=== PATIENT | female | born 1975 | race Caucasian/White ===

== ENCOUNTER 2017-10-07 19:30 | Emergency (ER) | payer OTHER ==
[~2017-10-07] VITALS: Ht 154.9 cm; Wt 56.7 kg
--- NOTE | 2017-10-07 19:30 | NUR ---
MSE DONE BY DR BROWN. PATIENT A & O X4. NO DISTRESS NOTED.
--- NOTE | 2017-10-07 19:45 | NUR ---
Patient discharged to home in stable conditon. Written and verbal after care instructions given. Patient verbalizes understanding of instructions.
== END 2017-10-07 19:45 | disposition home or self-care (01) ==
LOC: ER 19:32
DX: F41.9 Anxiety disorder, unspecified (principal); Z76.0 Encounter for issue of repeat prescription; J45.909 Unspecified asthma, uncomplicated
CPT/HCPCS: 99284; A4663

== ENCOUNTER 2017-10-25 22:36 | Emergency (ER) | payer OTHER ==
[~2017-10-25] VITALS: Ht 160 cm; Wt 50.8 kg
[2017-10-25] MEDS ORDERED: CLONAZEPAM (22:51)
--- NOTE | 2017-10-25 22:55 | NUR ---
DR. WATSON AT BEDSIDE FOR MSE.
[2017-10-25 23:21] LABS: BASOPHILS % (AUTO) 0.6 % (0.0-2.0); EOSINOPHILS # (AUTO) 0.2 K/uL (0.0-0.7); EOSINOPHILS % (AUTO) 2.4 % (0.0-7.0); HEMATOCRIT 36.1 % (31.2-41.9); HEMOGLOBIN 12.5 g/dL (10.9-14.3); LYMPHOCYTES % (AUTO) 27.5 % (20.5-51.5); MEAN CORPUSCULAR HEMOGLOBIN 31.1 uug (24.7-32.8); MEAN CORPUSCULAR HGB CONC 35 g/dL (32.3-35.6); MEAN CORPUSCULAR VOLUME 89.7 fL (75.5-95.3); MONOCYTES # (AUTO) 0.5 K/uL (2.0-10.0); MONOCYTES % (AUTO) 6.9 % (0.0-11.0); NEUTROPHILS # (AUTO) 4.6 K/uL (1.8-8.9); NEUTROPHILS % (AUTO) 62.6 % (38.5-71.5); PLATELET COUNT (AUTO) 177 K/uL (179-408); RED BLOOD CELL COUNT(AUTO) 4.02 MIL/uL (3.63-4.92); WHITE BLOOD COUNT (AUTO) 7.4 K/uL (3.8-11.8)
[2017-10-25 23:24] LABS: *BILIRUBIN,URIN NEGATIVE (NEGATIVE); *BLOOD, URINE NEGATIVE (NEGATIVE); *CLARITY,URINE CLEAR (CLEAR); *COLOR,URINE STRAW (YELLOW); *KETONES,URINE NEGATIVE (NEGATIVE); *PROTEIN,URINE NEGATIVE (NEGATIVE); *UROBILINOGEN,URINE 0.2 E.U./dl (NORMAL); LEUKOCYTE ESTERASE ,URINE 1+ (NEGATIVE); NITRITE, URINE NEGATIVE (NEGATIVE); PH,URINE 6.5 (5.0-8.0); UGLUCOSE NEGATIVE (NEGATIVE)
[2017-10-25 23:35] LABS: BACTERIA,URINE FEW /HPF (NONE SEEN); RBC,URINE NONE SEEN /HPF (0-3); SQUAMOUS EPITHELIAL CELL,UR FEW /HPF (NONE SEEN)
[2017-10-25 23:36] LABS: *URINE HCG, QUAL NEGATIVE (NEGATIVE); BILIRUBIN,DIRECT 0.1 mg/dL (0.0-0.2); BILIRUBIN,TOTAL 0.3 mg/dL (0.2-1.0); CREATININE 0.9 mg/dL (0.6-1.3); POTASSIUM 3.9 mmol/L (3.5-5.1); TOTAL PROTEIN, SERUM 7.3 g/dL (6.4-8.2)
--- NOTE | 2017-10-26 00:25 | NUR ---
Patient discharged to home in stable conditon. Written and verbal after care instructions given. Patient verbalizes understanding of instructions. PATIENT LEFT WITH STABLE GAIT.
[2017-10-26 00:26] VITALS: BP 114/69
[2017-10-26] MEDS ORDERED: CEPHALEXIN MONOHYDRATE 500 MG CAPSULE PO ONE (00:30)
[2017-10-26] MEDS ORDERED: CEPHALEXIN MONOHYDRATE 500 MG CAPSULE ONE (00:39)
== END 2017-10-26 00:26 | disposition home or self-care (01) ==
LOC: ER 22:37
DX: N39.0 Urinary tract infection, site not specified (principal); K59.00 Constipation, unspecified; J45.909 Unspecified asthma, uncomplicated; Z88.2 Allergy status to sulfonamides
CPT/HCPCS: 36415; 74021; 80048; 80076; 81001; 83690; 84703; 85025; 99285; A4663

== ENCOUNTER 2017-10-31 13:24 | Emergency (ER) | payer OTHER ==
[~2017-10-31] VITALS: Ht 165.1 cm; Wt 50.8 kg
[~2017-10-31 13:24] MED LIST: CLONAZEPAM
[2017-10-31 13:55] LABS: *BILIRUBIN,URIN NEGATIVE (NEGATIVE); *BLOOD, URINE 2+ (NEGATIVE); *CLARITY,URINE CLEAR (CLEAR); *COLOR,URINE YELLOW (YELLOW); *KETONES,URINE NEGATIVE (NEGATIVE); *PROTEIN,URINE NEGATIVE (NEGATIVE); *URINE HCG, QUAL NEGATIVE (NEGATIVE); *UROBILINOGEN,URINE 0.2 E.U./dl (NORMAL); LEUKOCYTE ESTERASE ,URINE 1+ (NEGATIVE); NITRITE, URINE NEGATIVE (NEGATIVE); UGLUCOSE NEGATIVE (NEGATIVE)
[2017-10-31 14:07] LABS: BACTERIA,URINE FEW /HPF (NONE SEEN); SQUAMOUS EPITHELIAL CELL,UR MODERATE /HPF (NONE SEEN)
--- NOTE | 2017-10-31 16:15 | NUR ---
MSE COMPLETED. OPT D/C'D HOME,ACI/RX X1 GIVEN. PT AMBULATED W/O DIFF/TOOK ALL BELONGINGS.
[2017-10-31 16:17] VITALS: BP 110/70
== END 2017-10-31 16:14 | disposition home or self-care (01) ==
LOC: ER 13:24
DX: N39.0 Urinary tract infection, site not specified (principal); J45.909 Unspecified asthma, uncomplicated; Z88.2 Allergy status to sulfonamides
CPT/HCPCS: 84703; 87086; A4663

== ENCOUNTER 2017-11-14 11:16 | Emergency (ER) | payer OTHER ==
[~2017-11-14] VITALS: Ht 157.5 cm; Wt 50.8 kg
[2017-11-14] MEDS ORDERED: predniSONE 10 MG TABLET PO ONE (12:15)
[2017-11-14] MEDS ORDERED: IPRATROPIUM BROMIDE 0.5 MG/2.5 ML NEBU NEB ONE (12:15)
[2017-11-14] MEDS ORDERED: ALBUTEROL SULFATE 2.5 MG/3 ML NEBU NEB ONE (12:15)
[2017-11-14] MEDS ORDERED: predniSONE 20 MG TABLET ONE (12:35)
--- NOTE | 2017-11-14 12:38 | NUR ---
PRTEDNISONE ADMIN EARLIER, PRESENTLY PT REC'ING RESP TX
[2017-11-14] MEDS ORDERED: ALBUTEROL SULFATE 2.5 MG/ 0.5 ML NEBU ONE (12:44)
[2017-11-14] MEDS ORDERED: IPRATROPIUM BROMIDE 0.5 MG/2.5 ML NEBU ONE (12:44)
[2017-11-14 14:02] VITALS: BP 110/68
== END 2017-11-14 14:02 | disposition home or self-care (01) ==
LOC: ER 11:16
DX: J45.909 Unspecified asthma, uncomplicated (principal); Z88.2 Allergy status to sulfonamides
CPT/HCPCS: 94644; 99285; A4663; J3590; J7512

== ENCOUNTER 2017-12-03 11:30 | Emergency (ER) | payer OTHER ==
[~2017-12-03] VITALS: Ht 157.5 cm; Wt 50.8 kg
[2017-12-03 12:31] LABS: BASOPHILS % (AUTO) 0.6 % (0.0-2.0); EOSINOPHILS # (AUTO) 0.2 K/uL (0.0-0.7); EOSINOPHILS % (AUTO) 2.3 % (0.0-7.0); HEMATOCRIT 38.1 % (31.2-41.9); HEMOGLOBIN 13.1 g/dL (10.9-14.3); LYMPHOCYTES # (AUTO) 1.1 K/uL (20.0-40.0); LYMPHOCYTES % (AUTO) 15.7 % (20.5-51.5); MEAN CORPUSCULAR HEMOGLOBIN 30.7 uug (24.7-32.8); MEAN CORPUSCULAR HGB CONC 34 g/dL (32.3-35.6); MEAN CORPUSCULAR VOLUME 89.5 fL (75.5-95.3); MONOCYTES # (AUTO) 0.8 K/uL (2.0-10.0); MONOCYTES % (AUTO) 10.5 % (0.0-11.0); NEUTROPHILS # (AUTO) 5.2 K/uL (1.8-8.9); NEUTROPHILS % (AUTO) 70.9 % (38.5-71.5); PLATELET COUNT (AUTO) 178 K/uL (179-408); RED BLOOD CELL COUNT(AUTO) 4.26 MIL/uL (3.63-4.92); WHITE BLOOD COUNT (AUTO) 7.3 K/uL (3.8-11.8)
[2017-12-03 12:38] LABS: *BLOOD, URINE 2+ (NEGATIVE); *COLOR,URINE YELLOW (YELLOW); *KETONES,URINE NEGATIVE (NEGATIVE); *PROTEIN,URINE NEGATIVE (NEGATIVE); *UROBILINOGEN,URINE 0.2 E.U./dl (NORMAL); LEUKOCYTE ESTERASE ,URINE 1+ (NEGATIVE); NITRITE, URINE NEGATIVE (NEGATIVE); UGLUCOSE NEGATIVE (NEGATIVE)
[2017-12-03 12:40] LABS: *BILIRUBIN,URIN NEGATIVE (NEGATIVE)
[2017-12-03 12:47] LABS: BILIRUBIN,DIRECT 0.2 mg/dL (0.0-0.2); BILIRUBIN,TOTAL 0.9 mg/dL (0.2-1.0); POTASSIUM 3.7 mmol/L (3.5-5.1); TOTAL PROTEIN, SERUM 6.8 g/dL (6.4-8.2)
[2017-12-03 12:47] LABS: BACTERIA,URINE FEW /HPF (NONE SEEN)
[2017-12-03 12:48] LABS: SQUAMOUS EPITHELIAL CELL,UR MODERATE /HPF (NONE SEEN)
[2017-12-03 12:52] LABS: *CLARITY,URINE SLIGHTLY CLOUDY (CLEAR)
--- NOTE | 2017-12-03 13:15 | NUR ---
MSE COMPLETED, PT D/C'D HOME, ACI/RX X1 AND CD COPY OF RIGOBERTO GIVEN. PT AMBULATED W/O DIFF/TOPOK ALL BELONGINGS.
[2017-12-03 13:16] VITALS: BP 107/64
== END 2017-12-03 13:16 | disposition home or self-care (01) ==
LOC: ER 11:30
DX: K80.70 Calculus of gallbladder and bile duct without cholecystitis without obstruction (principal); J45.909 Unspecified asthma, uncomplicated; Z88.2 Allergy status to sulfonamides
CPT/HCPCS: 36415; 76700; 83690; 84703; 85025; A4663

== ENCOUNTER 2018-04-01 11:53 | Emergency (ER) | payer OTHER ==
[~2018-04-01] VITALS: Ht 152.4 cm; Wt 51.7 kg
--- NOTE | 2018-04-01 12:06 | NUR ---
Patient discharged to home in stable conditon. Written and verbal after care instructions given. Patient verbalizes understanding of instructions.PT WALKS IN STEADY GAIT, NO RESP DISTRESS.
== END 2018-04-01 12:08 | disposition home or self-care (01) ==
LOC: ER 11:53
DX: J45.909 Unspecified asthma, uncomplicated (principal); Z88.2 Allergy status to sulfonamides; Z88.8 Allergy status to other drugs, medicaments and biological substances; Z79.899 Other long term (current) drug therapy
CPT/HCPCS: 99283; A4663

== ENCOUNTER 2018-04-18 20:05 | Emergency (ER) | payer OTHER ==
[~2018-04-18] VITALS: Ht 154.9 cm; Wt 50.8 kg
[2018-04-18] MEDS ORDERED: VENTOLIN INHALER (20:29)
--- NOTE | 2018-04-18 20:39 | NUR ---
PT IN NO DISTRESS,AAOX4, AMBULATORY C/O UNABLE TO LAY FLAT LAST NIGHT BUT SHE FEELS MUCH BETTER, HX OF ASHTMA, ALL LUNG ROGERS CLEAR, DENIES CP/SOB, PLACED ON THE MONITOR, HOB UP, SR UPX2 FOR SAFETY, BED IN LOW POSITION, LOCKED
[2018-04-18] MEDS ORDERED: predniSONE 10 MG TABLET PO ONE (20:45)
[2018-04-18] MEDS ORDERED: ALBUTEROL SULFATE 2.5 MG/3 ML NEBU NEB ONE (20:45)
[2018-04-18] MEDS ORDERED: IPRATROPIUM BROMIDE 0.5 MG/2.5 ML NEBU NEB ONE (20:45)
[2018-04-18] MEDS ORDERED: ALBUTEROL SULFATE 2.5 MG/3 ML NEBU ONE (21:02)
[2018-04-18] MEDS ORDERED: IPRATROPIUM BROMIDE 0.5 MG/2.5 ML NEBU ONE (21:02)
[2018-04-18] MEDS ORDERED: predniSONE 10 MG TABLET ONE (21:05)
[2018-04-18] MEDS ORDERED: predniSONE 50 MG TABLET ONE (21:06)
--- NOTE | 2018-04-18 23:06 | NUR ---
PT DENIES CP/SOB, PT ADVISED TO F/U WITH PMD OR RETURN TO ER FOR WORSENING OF SYMPTOMS,VERBALIZES UNDERSTANDING,RX GIVEN TO PT
== END 2018-04-18 23:24 | disposition home or self-care (01) ==
LOC: ER 20:05
DX: J45.909 Unspecified asthma, uncomplicated (principal); Z88.0 Allergy status to penicillin; Z88.2 Allergy status to sulfonamides; Z88.8 Allergy status to other drugs, medicaments and biological substances; Z79.899 Other long term (current) drug therapy
CPT/HCPCS: A4663; J3590; J7512

== ENCOUNTER 2018-04-28 09:02 | Emergency (ER) | payer OTHER ==
[~2018-04-28] VITALS: Ht 157.5 cm; Wt 50.8 kg
[~2018-04-28 09:02] MED LIST changes: +VENTOLIN INHALER
--- NOTE | 2018-04-28 09:17 | NUR ---
Dr Murdock at the bedside for MSE.
[2018-04-28] MEDS ORDERED: IPRATROPIUM BROMIDE 0.5 MG/2.5 ML NEBU NEB ONE (09:21)
[2018-04-28] MEDS ORDERED: predniSONE 20 MG TABLET PO ONE (09:21)
[2018-04-28] MEDS ORDERED: predniSONE 20 MG TABLET ONE (09:28)
[2018-04-28] MEDS ORDERED: IPRATROPIUM BROMIDE 0.5 MG/2.5 ML NEBU ONE (09:29)
[2018-04-28] MEDS ORDERED: ALBUTEROL SULFATE 2.5 MG/ 0.5 ML NEBU ONE (09:30)
[2018-04-28] MEDS ORDERED: ALBUTEROL SULFATE 2.5 MG/3 ML NEBU NEB ONE (09:30)
--- NOTE | 2018-04-28 10:30 | NUR ---
Pt states feeling better and wishes to leave.
--- NOTE | 2018-04-28 10:35 | NUR ---
Patient discharged to home in stable conditon. Written and verbal after care instructions given. Patient verbalizes understanding of instructions.
[2018-04-28 10:36] VITALS: BP 111/70
== END 2018-04-28 10:36 | disposition home or self-care (01) ==
LOC: ER 09:02
DX: J45.901 Unspecified asthma with (acute) exacerbation (principal); J45.909 Unspecified asthma, uncomplicated; Z88.0 Allergy status to penicillin; Z88.2 Allergy status to sulfonamides; Z88.8 Allergy status to other drugs, medicaments and biological substances; Z79.899 Other long term (current) drug therapy
CPT/HCPCS: 94640; 99283; A4663 ×2; J3590; J7512

== ENCOUNTER 2018-12-20 21:22 | Emergency (ER) | payer OTHER ==
[~2018-12-20] VITALS: Ht 160 cm; Wt 52.2 kg
--- NOTE | 2018-12-20 21:48 | NUR ---
Pt. ambulated into ED w/ daughter for c/o anxiety - states her clinic has closed and she has a new appointment w/ new psychiatrist but not until February, would like a prescription refill,
--- NOTE | 2018-12-20 22:02 | NUR ---
Patient discharged to home in stable conditon. Written and verbal after care instructions given. Patient verbalizes understanding of instructions. Pt. d/c w/ prescription per MD order, all belongings w/ pt., ID band removed, ambulated off unit w/ steady gait, instructed not to drive, NAD,
== END 2018-12-20 22:05 | disposition home or self-care (01) ==
LOC: ER 21:24
DX: F41.9 Anxiety disorder, unspecified (principal); J45.909 Unspecified asthma, uncomplicated; F17.290 Nicotine dependence, other tobacco product, uncomplicated; Z76.0 Encounter for issue of repeat prescription; Z88.0 Allergy status to penicillin; Z88.2 Allergy status to sulfonamides; Z88.8 Allergy status to other drugs, medicaments and biological substances; Z79.899 Other long term (current) drug therapy
CPT/HCPCS: A4663

== ENCOUNTER 2019-01-02 09:11 | Emergency (ER) | payer OTHER ==
[~2019-01-02] VITALS: Ht 162.6 cm; Wt 52.2 kg
[2019-01-02] MEDS ORDERED: CLON2TAB11 PO (09:18)
--- NOTE | 2019-01-02 09:38 | NUR ---
JAVIER KIRKPATRICK AT BEDSIDE FOR MSE.
[2019-01-02 09:52] VITALS: BP 110/66
--- NOTE | 2019-01-02 09:52 | NUR ---
Patient discharged to home in stable conditon. Written and verbal after care instructions given. Patient verbalizes understanding of instructions. PT D/C W/ PRESCRIPTIONS. ALL BELONGINGS W/ PT. PT SELF-AMBULATED W/O DIFFICULTY.
== END 2019-01-02 09:53 | disposition home or self-care (01) ==
LOC: ER 09:11
DX: F41.0 Panic disorder [episodic paroxysmal anxiety] (principal); Z76.0 Encounter for issue of repeat prescription; J45.909 Unspecified asthma, uncomplicated; F17.200 Nicotine dependence, unspecified, uncomplicated; Z88.0 Allergy status to penicillin; Z88.2 Allergy status to sulfonamides; Z88.8 Allergy status to other drugs, medicaments and biological substances; Z79.899 Other long term (current) drug therapy
CPT/HCPCS: A4663

== ENCOUNTER 2019-02-11 08:35 | Emergency (ER) | payer OTHER ==
[~2019-02-11] VITALS: Ht 142.2 cm; Wt 59.0 kg
[~2019-02-11 08:35] MED LIST changes: +CLON2TAB11 PO
--- NOTE | 2019-02-11 08:53 | NUR ---
PT WAS EVALUATED BY DR BRODY. PT WAS D/C'd TO HOME. D/C INSTRUCTIONS GIVEN TO THE PT.
[2019-02-11 08:55] VITALS: BP 125/68
== END 2019-02-11 08:57 | disposition home or self-care (01) ==
LOC: ER 08:35
DX: F41.9 Anxiety disorder, unspecified (principal); J45.909 Unspecified asthma, uncomplicated; F17.200 Nicotine dependence, unspecified, uncomplicated; Z88.0 Allergy status to penicillin; Z76.0 Encounter for issue of repeat prescription; Z88.2 Allergy status to sulfonamides; Z88.8 Allergy status to other drugs, medicaments and biological substances; Z79.899 Other long term (current) drug therapy
CPT/HCPCS: A4663

== ENCOUNTER 2019-10-19 09:54 | Emergency (ER) | payer OTHER ==
[~2019-10-19] VITALS: Ht 162.6 cm; Wt 52.2 kg
[2019-10-19] MEDS ORDERED: predniSONE 20 MG TABLET PO ONE (10:15)
[2019-10-19] MEDS ORDERED: predniSONE 50 MG TABLET ONE (10:24)
[2019-10-19] MEDS ORDERED: predniSONE 10 MG TABLET ONE (10:24)
--- NOTE | 2019-10-19 10:39 | NUR ---
Patient discharged to home in stable conditon. Written and verbal after care instructions given. Patient verbalizes understanding of instructions.pt walks in steady gait
== END 2019-10-19 10:49 | disposition home or self-care (01) ==
LOC: ER 09:57
DX: J45.901 Unspecified asthma with (acute) exacerbation (principal); M54.6 Pain in thoracic spine; F17.200 Nicotine dependence, unspecified, uncomplicated; Z88.0 Allergy status to penicillin; Z88.2 Allergy status to sulfonamides; Z88.8 Allergy status to other drugs, medicaments and biological substances; Z79.899 Other long term (current) drug therapy
CPT/HCPCS: 99283; J7512 ×2; A4663

== ENCOUNTER 2019-12-13 11:59 | Emergency (ER) | payer OTHER ==
[~2019-12-13] VITALS: Ht 152.4 cm; Wt 54.4 kg
[2019-12-13] MEDS ORDERED: predniSONE 50 MG TABLET PO ONE (13:15)
[2019-12-13] MEDS ORDERED: predniSONE 50 MG TABLET ONE (13:15)
[2019-12-13 13:19] VITALS: BP 104/72
--- NOTE | 2019-12-13 13:19 | NUR ---
Patient discharged to home in stable conditon. Written and verbal after care instructions given. Patient verbalizes understanding of instructions.
== END 2019-12-13 13:20 | disposition home or self-care (01) ==
LOC: ER 12:01
DX: J45.901 Unspecified asthma with (acute) exacerbation (principal); F41.9 Anxiety disorder, unspecified; F17.290 Nicotine dependence, other tobacco product, uncomplicated; Z76.0 Encounter for issue of repeat prescription; Z88.0 Allergy status to penicillin; Z88.2 Allergy status to sulfonamides; Z88.8 Allergy status to other drugs, medicaments and biological substances; Z79.899 Other long term (current) drug therapy
CPT/HCPCS: 99283; 99406; J7512; A4663

== ENCOUNTER 2020-07-27 17:50 | Emergency (ER) | payer OTHER ==
[~2020-07-27] VITALS: Ht 157.5 cm; Wt 54.4 kg
[2020-07-27] MEDS ORDERED: predniSONE 20 MG TABLET PO ONE (18:45)
--- NOTE | 2020-07-27 18:47 | NUR ---
Patient discharged to home in stable condition. Written and verbal after care instructions given. Patient verbalizes understanding of instructions. Stressed follow up or return to ER for worsening s/s.
[2020-07-27 18:48] VITALS: BP 126/68
[2020-07-27] MEDS ORDERED: predniSONE 20 MG TABLET ONE ×2 (18:48→18:50)
== END 2020-07-27 18:48 | disposition home or self-care (01) ==
LOC: ER 17:50
DX: J45.901 Unspecified asthma with (acute) exacerbation (principal); F17.210 Nicotine dependence, cigarettes, uncomplicated; Z88.0 Allergy status to penicillin; Z88.2 Allergy status to sulfonamides
CPT/HCPCS: 99283; 99406; J7512 ×2; A4663

== ENCOUNTER 2020-12-06 12:49 | Emergency (ER) | payer OTHER ==
[~2020-12-06] VITALS: Ht 157.5 cm; Wt 56.7 kg
== END 2020-12-06 14:52 | disposition home or self-care (01) ==
LOC: ER 12:49
DX: G62.9 Polyneuropathy, unspecified (principal); F41.9 Anxiety disorder, unspecified; G25.81 Restless legs syndrome; Z91.14 Patient's other noncompliance with medication regimen; Z88.0 Allergy status to penicillin; Z88.2 Allergy status to sulfonamides; Z88.8 Allergy status to other drugs, medicaments and biological substances
CPT/HCPCS: A4663

== ENCOUNTER 2021-01-19 18:14 | Emergency (ER) | payer OTHER ==
[~2021-01-19] VITALS: Ht 160 cm; Wt 54.4 kg
--- NOTE | 2021-01-19 19:01 | NUR ---
chaperoned md with pelvic exam. pt tolerated well.
--- NOTE | 2021-01-19 19:11 | NUR ---
Called radiology department for ultrasound request. U/S tech arrival ETA 30-45 minutes.
[2021-01-19 19:19] LABS: *OCCULT BLOOD STOOL NEGATIVE (NEGATIVE)
[2021-01-19 19:23] LABS: BASOPHILS # (AUTO) 0.1 K/uL (0.0-8.0); BASOPHILS % (AUTO) 0.9 % (0.0-2.0); EOSINOPHILS # (AUTO) 0.2 K/uL (0.0-0.7); EOSINOPHILS % (AUTO) 2.1 % (0.0-7.0); HEMATOCRIT 39.7 % (31.2-41.9); HEMOGLOBIN 13.4 g/dL (10.9-14.3); LYMPHOCYTES # (AUTO) 2.6 K/uL (20.0-40.0); LYMPHOCYTES % (AUTO) 31.5 % (20.5-51.5); MEAN CORPUSCULAR HEMOGLOBIN 30.8 uug (24.7-32.8); MEAN CORPUSCULAR HGB CONC 34 g/dL (32.3-35.6); MONOCYTES # (AUTO) 0.5 K/uL (2.0-10.0); MONOCYTES % (AUTO) 6.1 % (0.0-11.0); NEUTROPHILS % (AUTO) 59.4 % (38.5-71.5); PLATELET COUNT (AUTO) 214 K/uL (179-408); RED BLOOD CELL COUNT(AUTO) 4.36 MIL/uL (3.63-4.92); WHITE BLOOD COUNT (AUTO) 8.4 K/uL (3.8-11.8)
[2021-01-19 19:27] LABS: CREATININE 0.8 mg/dL (0.6-1.3)
[2021-01-19 19:41] LABS: BILIRUBIN,DIRECT 0.1 mg/dL (0.0-0.2); BILIRUBIN,TOTAL 0.4 mg/dL (0.2-1.0); TOTAL PROTEIN, SERUM 6.8 g/dL (6.4-8.2)
--- NOTE | 2021-01-19 20:02 | NUR ---
U/S tech in room with patient to do ultrasound.
--- NOTE | 2021-01-19 20:30 | NUR ---
Patient is resting in bed, using her phone. No acute distress is noted at this time.
[2021-01-19 20:39] LABS: *BILIRUBIN,URIN NEGATIVE (NEGATIVE); *BLOOD, URINE NEGATIVE (NEGATIVE); *CLARITY,URINE CLEAR (CLEAR); *COLOR,URINE YELLOW (YELLOW); *KETONES,URINE NEGATIVE (NEGATIVE); *UROBILINOGEN,URINE 0.2 E.U./dl (NORMAL); LEUKOCYTE ESTERASE ,URINE NEGATIVE (NEGATIVE); NITRITE, URINE NEGATIVE (NEGATIVE); UGLUCOSE NEGATIVE (NEGATIVE)
[2021-01-19 20:40] LABS: *URINE HCG, QUAL NEGATIVE (NEGATIVE)
[2021-01-19] MEDS ORDERED: HYDR28.316 RC (20:46)
[2021-01-19 21:00] VITALS: BP 106/64
--- NOTE | 2021-01-19 21:00 | NUR ---
Patient discharged to home in stable condition. Written and verbal after care instructions given. Patient verbalizes understanding of instructions. Stressed follow up or return to ER for worsening s/s. Patient ambulates with steady gait, Rx electronically sent, stable V/S, left with all personal belongings.
== END 2021-01-19 21:00 | disposition home or self-care (01) ==
LOC: ER 18:22
DX: R10.30 Lower abdominal pain, unspecified (principal); K64.4 Residual hemorrhoidal skin tags; M54.5 Low back pain; Z88.1 Allergy status to other antibiotic agents; Z88.0 Allergy status to penicillin; Z88.2 Allergy status to sulfonamides; G62.9 Polyneuropathy, unspecified
CPT/HCPCS: 36415; 76856; 83690; 84703; 85025; 85730; A4663

== ENCOUNTER 2021-06-05 17:45 | Emergency (ER) | payer OTHER ==
[~2021-06-05] VITALS: Ht 160 cm; Wt 54.4 kg
[~2021-06-05 17:45] MED LIST changes: +HYDR28.316 RC
[2021-06-05] MEDS ORDERED: BENZONATATE 100 MG CAPSULE PO ONE (19:00)
[2021-06-05] MEDS ORDERED: BENZONATATE 100 MG CAPSULE ONE ×2 (19:38→19:45)
[2021-06-05] MEDS ORDERED: AZIT250T PO ×2 (20:22→21:08)
[2021-06-05] MEDS ORDERED: BENZ-13 PO ×2 (20:22→21:08)
[2021-06-05] MEDS ORDERED: PRED50TA PO ×2 (20:22→21:08)
== END 2021-06-05 20:40 | disposition home or self-care (01) ==
LOC: ER 17:49
DX: J20.9 Acute bronchitis, unspecified (principal); Z20.822 Contact with and (suspected) exposure to COVID-19; G62.9 Polyneuropathy, unspecified; J45.909 Unspecified asthma, uncomplicated; Z88.0 Allergy status to penicillin; Z88.2 Allergy status to sulfonamides; F41.9 Anxiety disorder, unspecified; F17.210 Nicotine dependence, cigarettes, uncomplicated
CPT/HCPCS: 71045; A4663

== ENCOUNTER 2021-12-25 13:38 | Emergency (ER) | payer OTHER ==
[~2021-12-25] VITALS: Ht 152.4 cm; Wt 54.4 kg
[~2021-12-25 13:38] MED LIST changes: +AZIT250T PO; +BENZ-13 PO; +PRED50TA PO
[2021-12-25] MEDS ORDERED: CLIN300C12 PO (14:04)
[2021-12-25] MEDS ORDERED: NEOM3.5O31 OP (14:04)
== END 2021-12-25 14:11 | disposition home or self-care (01) ==
LOC: ER 13:38
DX: H00.11 Chalazion right upper eyelid (principal); J45.909 Unspecified asthma, uncomplicated; Z88.0 Allergy status to penicillin; Z88.2 Allergy status to sulfonamides; F41.9 Anxiety disorder, unspecified; Z79.899 Other long term (current) drug therapy
CPT/HCPCS: A4663

== ENCOUNTER 2022-01-20 15:06 | Emergency (ER) | payer OTHER ==
[~2022-01-20] VITALS: Ht 154.9 cm; Wt 50.8 kg
[~2022-01-20 15:06] MED LIST changes: +CLIN300C12 PO; +NEOM3.5O31 OP
--- NOTE | 2022-01-20 16:00 | NUR ---
Patient ambulatory alert and orientedx4 accompanied by daughter, complaints of right eye itching and redness with stye on upper eyelid. Patient came in ER with same complaint and was prescribed clindamycin 300mg three times a day but according to patient right eye redness is not improving after taking antibiotics. Vitals stable.
--- NOTE | 2022-01-20 16:08 | NUR ---
[email or web address], medical screening exam in progress
[2022-01-20] MEDS ORDERED: GENT5DRO4 RIGHTEYE (16:20)
[2022-01-20] MEDS ORDERED: CLIN300C12 PO (16:20)
[2022-01-20] MEDS ORDERED: KETO10DR3 RIGHTEYE (16:20)
--- NOTE | 2022-01-20 16:24 | NUR ---
Patient discharged to home in stable condition. Written and verbal after care instructions given to pt and daughter. Patient and daughter verbalizes understanding of instructions. Stressed follow up or return to ER for worsening s/s.
[2022-01-20 17:40] VITALS: BP 112/70
== END 2022-01-20 16:30 | disposition home or self-care (01) ==
LOC: ER 16:05
DX: H00.11 Chalazion right upper eyelid (principal); Z88.0 Allergy status to penicillin; J45.909 Unspecified asthma, uncomplicated; G62.9 Polyneuropathy, unspecified; F17.200 Nicotine dependence, unspecified, uncomplicated
CPT/HCPCS: A4663

== ENCOUNTER 2022-11-15 18:25 | Emergency (ER) | payer OTHER ==
[~2022-11-15] VITALS: Ht 157.5 cm; Wt 54.4 kg
[~2022-11-15 18:25] MED LIST changes: +GENT5DRO4 RIGHTEYE; +KETO10DR3 RIGHTEYE
--- NOTE | 2022-11-15 18:58 | NUR ---
Dr Massey at the bedside for MSE.
[2022-11-15] MEDS ORDERED: predniSONE 10 MG TABLET PO ONE (19:00)
[2022-11-15] MEDS ORDERED: ALBUTEROL SULFATE 2.5 MG/3 ML NEBU NEB ONE (19:00)
[2022-11-15] MEDS ORDERED: IPRATROPIUM BROMIDE 0.5 MG/2.5 ML NEBU NEB ONE (19:00)
[2022-11-15] MEDS ORDERED: predniSONE 50 MG TABLET ONE (19:03)
[2022-11-15] MEDS ORDERED: predniSONE 10 MG TABLET ONE (19:03)
[2022-11-15] MEDS ORDERED: ALBUTEROL SULFATE 2.5 MG/ 0.5 ML NEBU ONE (19:06)
[2022-11-15] MEDS ORDERED: IPRATROPIUM BROMIDE 0.5 MG/2.5 ML NEBU ONE (19:07)
[2022-11-15] MEDS ORDERED: PRED50TA PO (20:03)
[2022-11-15] MEDS ORDERED: ALBU2.5V13 NEB (20:03)
[2022-11-15 20:20] VITALS: BP 112/80
== END 2022-11-15 20:21 | disposition home or self-care (01) ==
LOC: ER 18:25
DX: J45.909 Unspecified asthma, uncomplicated (principal); G62.9 Polyneuropathy, unspecified
CPT/HCPCS: 99283; 94640; J7512 ×2; A4663; J3590

== ENCOUNTER 2024-02-10 14:06 | Emergency (ER) | payer OTHER ==
[~2024-02-10] VITALS: Ht 152.4 cm; Wt 53.5 kg
[~2024-02-10 14:06] MED LIST changes: +ALBU2.5V13 NEB
[2024-02-10] MEDS ORDERED: LIDOCAINE VISCUS 2% 15 ML UDC ONE (14:40)
[2024-02-10] MEDS ORDERED: MAG HYDROX/AL HYDROX/SIMETH 30 ML LIQUID UDC ONE (14:40)
[2024-02-10] MEDS: MAG HYDROX/AL HYDROX/SIMETH 30 ML LIQUID UDC PO ONE (14:43)
[2024-02-10] MEDS: LIDOCAINE VISCUS 2% 15 ML UDC MM ONE (14:43)
[2024-02-10 14:44] LABS: BASOPHILS # (AUTO) 0.1 K/UL (0.0-0.2); BASOPHILS % (AUTO) 1.1 % (0.0-2.0); EOSINOPHILS # (AUTO) 0.2 K/uL (0.0-0.7); EOSINOPHILS % (AUTO) 4.2 % (0.0-7.0); HEMATOCRIT 40.8 % (31.2-41.9); HEMOGLOBIN 13.8 g/dL (10.9-14.3); LYMPHOCYTES # (AUTO) 2.1 K/uL (0.8-4.8); LYMPHOCYTES % (AUTO) 36.9 % (20.5-51.5); MEAN CORPUSCULAR HEMOGLOBIN 30.1 uug (24.7-32.8); MEAN CORPUSCULAR HGB CONC 34 g/dL (32.3-35.6); MEAN CORPUSCULAR VOLUME 89.2 fL (75.5-95.3); MONOCYTES # (AUTO) 0.4 K/uL (0.1-1.30); NEUTROPHILS # (AUTO) 2.9 K/uL (1.8-8.9); NEUTROPHILS % (AUTO) 50.8 % (38.5-71.5); PLATELET COUNT (AUTO) 246 K/uL (179-408); RED BLOOD CELL COUNT(AUTO) 4.58 MIL/uL (3.63-4.92); RED CELL DISTRIBUTION WIDTH 12.8 % (12.3-17.7); WHITE BLOOD COUNT (AUTO) 5.7 K/uL (3.8-11.8)
[2024-02-10 15:08] LABS: ALBUMIN 3.8 g/dL (3.4-5.0); BILIRUBIN,DIRECT 0.1 mg/dL (0.0-0.2); BILIRUBIN,TOTAL 0.4 mg/dL (0.2-1.0); POTASSIUM 3.9 mmol/L (3.5-5.1)
[2024-02-10 16:32] LABS: *BILIRUBIN,URIN NEGATIVE (NEGATIVE); *BLOOD, URINE NEGATIVE (NEGATIVE); *CLARITY,URINE CLEAR (CLEAR); *COLOR,URINE YELLOW (YELLOW); *KETONES,URINE NEGATIVE (NEGATIVE); *PROTEIN,URINE NEGATIVE (NEGATIVE); *UROBILINOGEN,URINE 0.2 E.U./dl (NORMAL); LEUKOCYTE ESTERASE ,URINE 1+ (NEGATIVE); NITRITE, URINE NEGATIVE (NEGATIVE); UGLUCOSE NEGATIVE (NEGATIVE)
[2024-02-10 16:47] VITALS: BP 131/71; TEMP 98.2; O2SAT 98
[2024-02-10 17:35] LABS: BACTERIA,URINE FEW /HPF (NONE SEEN); SQUAMOUS EPITHELIAL CELL,UR FEW /HPF (NONE SEEN)
== END 2024-02-10 16:48 | disposition home or self-care (01) ==
LOC: ER 14:06
DX: K80.50 Calculus of bile duct without cholangitis or cholecystitis without obstruction (principal); R10.2 Pelvic and perineal pain; F17.200 Nicotine dependence, unspecified, uncomplicated; J45.909 Unspecified asthma, uncomplicated; Z79.899 Other long term (current) drug therapy; Z60.2 Problems related to living alone; Z88.0 Allergy status to penicillin; Z88.2 Allergy status to sulfonamides
CPT/HCPCS: 36415; 83690; 84484; 85025; 93005; A4606; A4663

== ENCOUNTER 2024-03-07 23:00 | Emergency (ER) | payer OTHER ==
[~2024-03-07] VITALS: Ht 157.5 cm; Wt 61.2 kg
[2024-03-07] MEDS ORDERED: predniSONE 50 MG TABLET ONE (23:22)
[2024-03-07] MEDS ORDERED: predniSONE 10 MG TABLET ONE (23:22)
[2024-03-07] MEDS: predniSONE 20 MG TABLET PO ONE (23:25)
[2024-03-07 23:33] VITALS: O2SAT 97
[2024-03-07] MEDS: ALBUTEROL SULFATE 2.5 MG/3 ML NEBU NEB ONE (23:33)
[2024-03-07] MEDS: IPRATROPIUM BROMIDE 0.5 MG/2.5 ML NEBU NEB ONE (23:33)
[2024-03-07 23:50] VITALS: O2SAT 99
[2024-03-08] MEDS ORDERED: PRED20TA PO (00:07)
[2024-03-08] MEDS ORDERED: ALBU18HF2 INH (00:07)
[2024-03-08] MEDS ORDERED: FLUT1DIS29 INH (00:07)
[2024-03-08 00:15] VITALS: BP 116/62; TEMP 97.8; O2SAT 95
== END 2024-03-08 00:15 | disposition home or self-care (01) ==
LOC: ER 23:01
DX: J45.901 Unspecified asthma with (acute) exacerbation (principal); F17.200 Nicotine dependence, unspecified, uncomplicated; Z79.899 Other long term (current) drug therapy; Z60.2 Problems related to living alone; Z88.0 Allergy status to penicillin; Z88.2 Allergy status to sulfonamides
CPT/HCPCS: 99283; 94640; J7512 ×2; A4606; A4663; J3590

== ENCOUNTER 2024-08-03 18:14 | Emergency (ER) | payer OTHER ==
[~2024-08-03] VITALS: Ht 157.5 cm; Wt 52.2 kg
[~2024-08-03 18:14] MED LIST changes: +ALBU18HF2 INH; +FLUT1DIS29 INH; +PRED20TA PO
[2024-08-03] MEDS ORDERED: predniSONE 50 MG TABLET ONE (18:47)
[2024-08-03] MEDS: predniSONE 50 MG TABLET PO ONE (18:48)
[2024-08-03] MEDS ORDERED: ALBUTEROL SULFATE 2.5 MG/3 ML NEBU ONE (18:57)
[2024-08-03 19:03] VITALS: O2SAT 96
[2024-08-03] MEDS: ALBUTEROL SULFATE 2.5 MG/3 ML NEBU NEB ONE (19:03)
[2024-08-03 19:15] VITALS: O2SAT 99
[2024-08-03] MEDS ORDERED: methylPREDNISolone SOD SUCC 125 MG/2 ML VIAL ONE (19:37)
[2024-08-03] MEDS ORDERED: LORA10CA PO (19:43)
[2024-08-03] MEDS ORDERED: PRED50TA PO (19:43)
[2024-08-03] MEDS ORDERED: ALBU18HF2 INH (19:44)
[2024-08-03] MEDS: methylPREDNISolone SOD SUCC 125 MG/2 ML VIAL IM ONE (19:45)
[2024-08-03] MEDS ORDERED: IPRA12.9 INH (20:07)
[2024-08-03 20:20] VITALS: BP 113/66; O2SAT 97
== END 2024-08-03 20:15 | disposition home or self-care (01) ==
LOC: ER 18:15
DX: J45.901 Unspecified asthma with (acute) exacerbation (principal); F41.9 Anxiety disorder, unspecified; F17.200 Nicotine dependence, unspecified, uncomplicated; Z79.52 Long term (current) use of systemic steroids; Z79.51 Long term (current) use of inhaled steroids; Z79.899 Other long term (current) drug therapy; Z60.2 Problems related to living alone; Z88.0 Allergy status to penicillin; Z88.1 Allergy status to other antibiotic agents; Z88.2 Allergy status to sulfonamides
CPT/HCPCS: 99283; 71045; 94640; 96372; J7512; J2919; A4606; A4663

== ENCOUNTER → 2025-01-09 | Emergency (ER) | payer OTHER ==
[~2025-01-09] VITALS: Ht 154.9 cm; Wt 52.2 kg
[~2025-01-09] MED LIST changes: +IPRA12.9 INH; +LIDOCAINE VISCUS 2% 15 ML UDC ONE; +LORA10CA PO; +MAG HYDROX/AL HYDROX/SIMETH 30 ML LIQUID UDC ONE
[2025-01-09 19:54] LABS: *BILIRUBIN,URIN NEGATIVE (NEGATIVE); *BLOOD, URINE NEGATIVE (NEGATIVE); *COLOR,URINE YELLOW (YELLOW); *KETONES,URINE NEGATIVE (NEGATIVE); *PROTEIN,URINE NEGATIVE (NEGATIVE); *UROBILINOGEN,URINE 0.2 E.U./dl (NORMAL); LEUKOCYTE ESTERASE ,URINE TRACE (NEGATIVE); NITRITE, URINE NEGATIVE (NEGATIVE); PH,URINE 5.5 (5.0-8.0); UGLUCOSE NEGATIVE (NEGATIVE)
[2025-01-09 19:57] LABS: BASOPHILS # (AUTO) 0.1 K/UL (0.0-0.2); BASOPHILS % (AUTO) 1.1 % (0.0-2.0); EOSINOPHILS # (AUTO) 0.3 K/uL (0.0-0.7); HEMATOCRIT 38.4 % (31.2-41.9); HEMOGLOBIN 13.1 g/dL (10.9-14.3); LYMPHOCYTES # (AUTO) 2.1 K/uL (0.8-4.8); LYMPHOCYTES % (AUTO) 33.7 % (20.5-51.5); MEAN CORPUSCULAR HEMOGLOBIN 30.2 uug (24.7-32.8); MEAN CORPUSCULAR HGB CONC 34 g/dL (32.3-35.6); MEAN CORPUSCULAR VOLUME 88.8 fL (75.5-95.3); MONOCYTES # (AUTO) 0.5 K/uL (0.1-1.30); MONOCYTES % (AUTO) 8.5 % (0.0-11.0); NEUTROPHILS # (AUTO) 3.2 K/uL (1.8-8.9); NEUTROPHILS % (AUTO) 51.7 % (38.5-71.5); PLATELET COUNT (AUTO) 222 K/uL (179-408); RED BLOOD CELL COUNT(AUTO) 4.33 MIL/uL (3.63-4.92); RED CELL DISTRIBUTION WIDTH 13.3 % (12.3-17.7); WHITE BLOOD COUNT (AUTO) 6.3 K/uL (3.8-11.8)
[2025-01-09] MEDS: MAG HYDROX/AL HYDROX/SIMETH 30 ML LIQUID UDC PO ONE (20:00)
[2025-01-09] MEDS: LIDOCAINE VISCUS 2% 15 ML UDC MM ONE (20:00)
[2025-01-09 20:03] LABS: CALCIUM 9.2 mg/dL (8.5-10.1); CREATININE 0.9 mg/dL (0.6-1.3); DIFFERENTIAL COMMENT 1; POTASSIUM 3.9 mmol/L (3.5-5.1)
[2025-01-09 20:03] LABS: *CLARITY,URINE SLIGHTLY CLOUDY (CLEAR)
[2025-01-09 20:04] LABS: *URINE HCG, QUAL NEGATIVE (NEGATIVE)
[2025-01-09 20:08] LABS: BACTERIA,URINE FEW /HPF (NONE SEEN); RBC,URINE 0-3 /HPF (0-3); SQUAMOUS EPITHELIAL CELL,UR MODERATE /HPF (NONE SEEN); WBC,URINE 0-3 /HPF (0-3)
[2025-01-09 20:17] LABS: ALBUMIN 3.6 g/dL (3.4-5.0); BILIRUBIN,DIRECT 0.1 mg/dL (0.0-0.2); BILIRUBIN,TOTAL 0.4 mg/dL (0.2-1.0); TOTAL PROTEIN, SERUM 6.6 g/dL (6.4-8.2)
[2025-01-09 21:03] VITALS: BP 105/66; O2SAT 96
== END | disposition home or self-care (01) ==
LOC: ER 18:58
DX: M54.50 Low back pain, unspecified (principal); K29.70 Gastritis, unspecified, without bleeding; J45.909 Unspecified asthma, uncomplicated; K21.9 Gastro-esophageal reflux disease without esophagitis; F17.210 Nicotine dependence, cigarettes, uncomplicated; Z79.51 Long term (current) use of inhaled steroids; Z79.52 Long term (current) use of systemic steroids; Z79.899 Other long term (current) drug therapy; Z86.0100 Personal history of colon polyps, unspecified; Z88.0 Allergy status to penicillin; Z88.1 Allergy status to other antibiotic agents; Z88.2 Allergy status to sulfonamides
CPT/HCPCS: 36415; 83690; 84703; 85025; A4606; A4663